=== PATIENT | male | born 1965 | race African-American/Black ===

== ENCOUNTER 2018-02-11 15:43 | Emergency (ER) | payer BC ==
--- NOTE | 2018-02-11 17:03 | RAD ---
CERVICAL SPINE FOUR VIEWS: HISTORY: Neck pain. FINDINGS: Vertebral body heights are maintained. Reversal of the normal lordotic curvature. Minimal spondylol isthesis at the C2-C3 level. Osteophytosis throughout the vertebral bodies and facets. No acute fra cture or dislocation. IMPRESSION: Mild degenerative changes, cervical spine. No acute osseous abnormalities are demonstrated. POS: [facility]
== END 2018-02-11 16:44 | disposition home or self-care (01) ==
LOC: ERS 15:43
DX: M47.812 Spondylosis without myelopathy or radiculopathy, cervical region (principal); I10 Essential (primary) hypertension; I45.6 Pre-excitation syndrome
CPT/HCPCS: 72040

== ENCOUNTER 2018-06-18 14:22 | Outpatient (CLI) | payer BC ==
--- NOTE | 2018-06-18 14:38 | RAD ---
XR Lumbar Spine 2 Or 3 View HISTORY: Low back pain COMPARISON: None. FINDINGS: The vertebral bodies are normal in height. Degenerative osteophytes are seen without signif icant disc narrowing. Pedicles are intact. No spondylolisthesis. IMPRESSION: Minimal arthritic changes of the spine.
== END 2018-06-18 14:23 | disposition home or self-care (01) ==
LOC: RAD-FRANK 14:22
PROVIDERS: ATTEND Nurse Practitioner Family
DX: M54.5 Low back pain (principal); M47.816 Spondylosis without myelopathy or radiculopathy, lumbar region
CPT/HCPCS: 72100

== ENCOUNTER 2019-09-14 20:28 | Emergency (ER) | payer OTHER ==
[2019-09-14] MEDS ORDERED: Aspirin Chewable 81 MG TAB ONE (20:54)
[2019-09-14] MEDS ORDERED: Dexamethasone 10 MG/ML VIAL ONE (20:54)
--- NOTE | 2019-09-14 21:13 | RAD ---
EXAM: Single view of the chest HISTORY: Covid positive with dyspnea COMPARISON: 01/30/2004 FINDINGS: Single view of the chest shows a normal sized cardiomediastinal silhouette. Scattered perip heral opacities are seen in the lungs, left greater than right. The bones are unremarkable IMPRESSION: Multifocal peripheral infiltrates are consistent with Covid pneumonia.
[2019-09-14 21:15] LABS: #Lymphocytes 0.9 thou/uL (1.20-3.40); #Monocytes 0.4 thou/uL (0.11-0.59); #Neutrophils 3.9 thou/uL (1.40-6.50); %Basophils 0.4 % (0.0-1.0); %Eosinophils 0.4 % (0.0-10.0); %Lymphocytes 17.4 % (21.0-51.0); %Monocytes 7.9 % (0.0-10.0); %Neutrophils 73.9 % (42.0-75.0); Hemoglobin 14.2 g/dL (14.0-18.0); Mean Corpuscular Hemoglobin 29.5 pg (27.0-31.0); Mean Corpuscular Volume 86.7 fL (78.0-98.0); Platelet Count 145 thou/uL (130-400); RBC Distribution Width 13.3 % (11.5-14.5); Red Blood Cell (RBC) Count 4.81 mill/uL (4.70-6.10); White Blood Cell (WBC) Count 5.3 thou/uL (4.8-10.8)
[2019-09-14 21:38] LABS: ALT (SGPT) 37 U/L (8-55); AST (SGOT) 42 U/L (5-34); Albumin 4.2 g/dL (3.5-5.0); Alkaline Phosphatase 53 U/L (40-110); Anion Gap 12 mmol/L (10-20); BUN (Urea Nitrogen) 8 mg/dL (8.4-25.7); Bilirubin, Total 0.2 mg/dL (0.2-1.2); CK (CPK) 313 U/L (30-200); Calc. Creatinine Clearance 0 mL/min (70-130); Calcium 8.9 mg/dL (7.8-10.44); Carbon Dioxide 23 mmol/L (22-29); Chloride 99 mmol/L (98-107); Estimated GFR-MDRD 81; Globulin 3.7 g/dL (2.4-3.5); Glucose 139 mg/dL (70-105); Lipase 44 U/L (8-78); Potassium 4.4 mmol/L (3.5-5.1); Protein, Total 7.9 g/dL (6.0-8.3); Sodium 130 mmol/L (136-145)
[2019-09-14] MEDS ORDERED: Acetaminophen 500 MG TAB ONE (22:15)
[2019-09-14] MEDS ORDERED: Ketorolac Tromethamine 30 MG/ML VIAL ONE (22:15)
== END 2019-09-14 22:25 | disposition home or self-care (01) ==
LOC: ERS 20:28
DX: B34.2 Coronavirus infection, unspecified (principal); R91.8 Other nonspecific abnormal finding of lung field; I10 Essential (primary) hypertension; I45.6 Pre-excitation syndrome; Z85.46 Personal history of malignant neoplasm of prostate; Z79.891 Long term (current) use of opiate analgesic
CPT/HCPCS: 71045; 80053; 82550; 83690; 83880; 84484; 85025; 85379; 93005; 96361; 96374; 96375; J1100; J1885

== ENCOUNTER 2022-08-25 21:44 | Emergency (ER) | payer OTHER ==
[2022-08-25] MEDS ORDERED: Ketorolac Tromethamine 30 MG/ML VIAL ONE (23:09)
[2022-08-25] MEDS ORDERED: Diazepam 5 MG TAB ONE (23:12)
== END 2022-08-26 00:30 | disposition home or self-care (01) ==
LOC: ERS 21:44
DX: M54.50 Low back pain, unspecified (principal); I10 Essential (primary) hypertension
CPT/HCPCS: 72100; 96372; J1885